=== PATIENT | male | born 1945 | race Caucasian/White ===

== ENCOUNTER → 2018-05-31 14:00 | Outpatient (CLI) | payer MEDICARE, BC, SELFPAY | PROVIDERS: PCP Family Medicine; Visit Provider Urology | DX: N39.41 Urge incontinence (principal) | CPT/HCPCS: 99213 ==

== ENCOUNTER → 2018-07-12 11:14 | Outpatient (BNVA) | payer MEDICARE, BC, SELFPAY | PROVIDERS: Visit Provider Urology | DX: N39.41 Urge incontinence (principal); E11.9 Type 2 diabetes mellitus without complications; Z79.84 Long term (current) use of oral hypoglycemic drugs | CPT/HCPCS: 99213 ==

== ENCOUNTER 2018-09-15 01:57 | Outpatient (CLI) | payer MEDICARE, BC, SELFPAY ==
[2018-09-15 09:15] LABS: Hemoglobin A1C 6.7 % (4.5-6.2)
[2018-09-15 09:50] LABS: ALT 23 U/L (12-78); AST 20 U/L (15-37); Albumin 3.5 g/dL (3.4-5.0); Alkaline Phosphatase 77 U/L (46-116); Anion Gap 6.9 mmol/L (3-11); BUN 14 mg/dL (7-18); Bilirubin, Total 0.5 mg/dL (0.2-1.0); CO2 30.1 mmol/L (21.0-32.0); CREATININE 0.98 mg/dL (0.70-1.30); Calcium 8.8 mg/dL (8.5-10.1); Chloride 103 mmol/L (98-107); Glucose 118 mg/dL (70-100); Potassium 4.3 mmol/L (3.5-5.1); Sodium 140 mmol/L (136-145); Total Protein 6.9 g/dL (6.4-8.2)
[2018-09-15 09:56] LABS: COMMENT (LAB VIEW ONLY) 194.08 mg/dL; Microalb ug/mg Crea 2.7 ug/mg Cr
== END 2018-09-15 02:17 ==
PROVIDERS: PCP Family Medicine; Visit Provider Family Medicine
DX: E11.9 Type 2 diabetes mellitus without complications (principal); I10 Essential (primary) hypertension
CPT/HCPCS: 36415; 80053; 82043; 82570; 83036

== ENCOUNTER → 2018-10-17 08:37 | Outpatient (BNVA) | payer MEDICARE, BC, SELFPAY | PROVIDERS: PCP Family Medicine; Visit Provider Psychiatry & Neurology Neurology | DX: G25.0 Essential tremor (principal); G31.84 Mild cognitive impairment of uncertain or unknown etiology; E11.9 Type 2 diabetes mellitus without complications; Z79.84 Long term (current) use of oral hypoglycemic drugs; I10 Essential (primary) hypertension | CPT/HCPCS: 99214 ==

== ENCOUNTER → 2018-12-14 10:39 | Outpatient (BNVA) | payer MEDICARE, BC, SELFPAY | PROVIDERS: PCP Family Medicine; Visit Provider Psychiatry & Neurology Neurology | DX: G25.0 Essential tremor (principal); G31.84 Mild cognitive impairment of uncertain or unknown etiology; E11.9 Type 2 diabetes mellitus without complications; Z79.84 Long term (current) use of oral hypoglycemic drugs; I10 Essential (primary) hypertension | CPT/HCPCS: 99214 ==

== ENCOUNTER → 2019-01-20 07:54 | Outpatient (BNVA) | payer MEDICARE, BC, SELFPAY | PROVIDERS: PCP Family Medicine; Visit Provider Urology | DX: N40.0 Benign prostatic hyperplasia without lower urinary tract symptoms (principal); N32.81 Overactive bladder; E11.9 Type 2 diabetes mellitus without complications | CPT/HCPCS: 51798; 99213 ==

== ENCOUNTER → 2019-03-07 08:20 | Outpatient (BNVA) | payer MEDICARE, BC, SELFPAY | PROVIDERS: PCP Family Medicine; Visit Provider Urology | DX: N40.1 Benign prostatic hyperplasia with lower urinary tract symptoms (principal); N32.81 Overactive bladder | CPT/HCPCS: 99213 ==

== ENCOUNTER 2019-04-03 09:42 | Outpatient (CLI) | payer MEDICARE, BC, SELFPAY ==
[2019-04-04 10:56] LABS: Lyme Ab w Rflx to Lyme Confirm Negative
== END 2019-04-03 10:02 ==
PROVIDERS: PCP Family Medicine; Visit Provider Family Medicine
DX: W57.XXXA Bitten or stung by nonvenomous insect and other nonvenomous arthropods, initial encounter (principal); T14.8XXA Other injury of unspecified body region, initial encounter
CPT/HCPCS: 36415; 86618

== ENCOUNTER 2019-04-14 02:23 | Outpatient (CLI) | payer MEDICARE, BC, SELFPAY ==
[2019-04-14 09:43] LABS: HCT 45.6 % (40.0-50.0); Mean Corp. HGB Concentration 32.9 g/dL (32.0-36.0); Mean Corpuscular Hemoglobin 30.5 pg (27.0-33.0); Mean Corpuscular Volume 92.9 fL (80-95); Mean Platelet Volume 11.7 fL (8.0-11.0); Platelet Count 185 x1000/uL (130-400); RBC 4.91 m/cumm (4.50-6.00); White Blood Cell Count 8.64 k/cumm (4.4-10.8)
[2019-04-14 09:49] LABS: Iron 124 ug/dL (50-175); Total Iron Binding Capacity 257 ug/dL (250-450); Transferrin Sat 48 % (20-55)
[2019-04-14 09:51] LABS: ALT 22 U/L (12-78); AST 18 U/L (15-37); Albumin 3.6 g/dL (3.4-5.0); Alkaline Phosphatase 89 U/L (46-116); Anion Gap 8.4 mmol/L (3-11); BUN 17 mg/dL (7-18); Bilirubin, Total 0.6 mg/dL (0.2-1.0); CO2 28.6 mmol/L (21.0-32.0); Calcium 9.1 mg/dL (8.5-10.1); Chloride 106 mmol/L (98-107); Glucose 114 mg/dL (70-100); Potassium 4.7 mmol/L (3.5-5.1); Sodium 143 mmol/L (136-145)
[2019-04-14 09:56] LABS: Hemoglobin A1C 6.7 % (4.5-6.2)
== END 2019-04-14 02:43 ==
PROVIDERS: PCP Family Medicine; Visit Provider Family Medicine
DX: E11.9 Type 2 diabetes mellitus without complications (principal); Z86.2 Personal history of diseases of the blood and blood-forming organs and certain disorders involving the immune mechanism
CPT/HCPCS: 36415; 80053; 85027; 83036; 83540; 83550

== ENCOUNTER → 2019-05-01 08:08 | Outpatient (BNVA) | payer MEDICARE, BC, SELFPAY | PROVIDERS: PCP Family Medicine; Visit Provider Psychiatry & Neurology Neurology | DX: G25.0 Essential tremor (principal); G31.84 Mild cognitive impairment of uncertain or unknown etiology; E11.9 Type 2 diabetes mellitus without complications; G47.33 Obstructive sleep apnea (adult) (pediatric) | CPT/HCPCS: 99213 ==

== ENCOUNTER → 2019-08-08 09:23 | Outpatient (BNVA) | payer MEDICARE, BC, SELFPAY | PROVIDERS: PCP Family Medicine; Referring Provider Family Medicine; Visit Provider Urology | DX: N39.41 Urge incontinence (principal) | CPT/HCPCS: 99213 ==

== ENCOUNTER → 2019-08-14 08:22 | Outpatient (BNVA) | payer MEDICARE, BC, SELFPAY | PROVIDERS: PCP Family Medicine; Referring Provider Family Medicine; Visit Provider Psychiatry & Neurology Neurology | DX: G25.0 Essential tremor (principal); G30.9 Alzheimer's disease, unspecified; F02.80 Dementia in other diseases classified elsewhere, unspecified severity, without behavioral disturbance, psychotic disturbance, mood disturbance, and anxiety | CPT/HCPCS: 99213 ==

== ENCOUNTER → 2020-02-12 07:51 | Outpatient (BNVA) | payer MEDICARE, BC, SELFPAY | PROVIDERS: PCP Family Medicine; Referring Provider Family Medicine; Visit Provider Psychiatry & Neurology Neurology | DX: R69 Illness, unspecified (principal) ==

== ENCOUNTER → 2020-02-13 07:54 | Outpatient (BNVA) | payer MEDICARE, BC, SELFPAY | PROVIDERS: PCP Family Medicine; Referring Provider Family Medicine; Visit Provider Psychiatry & Neurology Neurology | DX: R69 Illness, unspecified (principal) ==

== ENCOUNTER → 2020-02-28 08:11 | Outpatient (BNVA) | payer MEDICARE, BC, SELFPAY | PROVIDERS: PCP Family Medicine; Referring Provider Family Medicine; Visit Provider Psychiatry & Neurology Neurology | DX: G30.9 Alzheimer's disease, unspecified (principal); F02.80 Dementia in other diseases classified elsewhere, unspecified severity, without behavioral disturbance, psychotic disturbance, mood disturbance, and anxiety; G25.0 Essential tremor | CPT/HCPCS: 99214 ==

== ENCOUNTER → 2020-04-23 08:43 | Outpatient (BNVA) | payer MEDICARE, BC, SELFPAY | PROVIDERS: PCP Family Medicine; Referring Provider Family Medicine; Visit Provider Urology | DX: N39.41 Urge incontinence (principal); E11.9 Type 2 diabetes mellitus without complications; Z79.84 Long term (current) use of oral hypoglycemic drugs | CPT/HCPCS: 99213 ==

== ENCOUNTER 2020-09-09 21:22 | Outpatient (REF) | payer MEDICARE, BC, SELFPAY ==
[2020-09-09 21:58] LABS: Abs Immature Grans 0.01 10^3/uL (0.0-0.06); Absolute Basophil Count 0.08 10^3/uL (0.0-0.2); Absolute Eosinophil Count 0.08 10^3/uL (0.0-0.7); Absolute Lymphocyte Count 1.94 10^3/uL (1.2-3.4); Absolute Neutrophil Count 5.15 10^3/uL (1.2-6.7); HCT 43.6 % (40.0-50.0); HGB 14.1 g/dL (13.5-17.5); Immature Grans % 0.1; Lymphocytes % 24.7; MCHC 32.3 % (32.0-36.0); MCV 92.8 fL (80-95); MPV 12.3 fL (8.0-11.0); Monocytes % 7.6; Neutrophils % 65.6; Nucleated RBC 0 %; Platelet Count 181 10^3/uL (130-400); RDW 14.6 % (11.8-14.1); RDW-SD 50.3 fL; WBC 7.86 10^3/uL (4.4-10.8)
[2020-09-09 22:20] LABS: Iron 78 ug/dL (65-175); Total Iron Binding Capacity 294 ug/dL (250-450); Transferrin Sat 27 % (20-55)
[2020-09-09 22:21] LABS: Hemoglobin A1C 6.7 % (<5.7)
[2020-09-09 22:44] LABS: ALT 22 U/L (16-63); AST 23 U/L (15-37); Albumin 3.9 g/dL (3.4-5.0); Alkaline Phosphatase 103 U/L (46-116); Anion Gap 8.7 mmol/L (3-11); BUN 20 mg/dL (7-18); Bilirubin, Total 0.6 mg/dL (0.2-1.0); CO2 27.3 mmol/L (21.0-32.0); CREATININE 1.07 mg/dL (0.70-1.30); Calcium 8.8 mg/dL (8.5-10.1); Chloride 105 mmol/L (98-107); Ferritin 105 ng/mL (26-388); Glucose 115 mg/dL (74-106); Potassium 4.7 mmol/L (3.5-5.1); Sodium 141 mmol/L (136-145); Total Protein 7.3 g/dL (6.4-8.2)
== END 2020-09-09 21:42 ==
LOC: NCHCN 21:22
PROVIDERS: PCP Family Medicine; Visit Provider Family Medicine
DX: E11.9 Type 2 diabetes mellitus without complications (principal); D50.9 Iron deficiency anemia, unspecified; K76.0 Fatty (change of) liver, not elsewhere classified
CPT/HCPCS: 80053; 82728; 83036; 83540; 83550; 85025

== ENCOUNTER → 2021-04-01 14:46 | Outpatient (BNVA) | payer MEDICARE, BC, SELFPAY | PROVIDERS: PCP Family Medicine; Referring Provider Family Medicine; Visit Provider Psychiatry & Neurology Neurology | DX: G25.0 Essential tremor (principal); G30.9 Alzheimer's disease, unspecified; F02.80 Dementia in other diseases classified elsewhere, unspecified severity, without behavioral disturbance, psychotic disturbance, mood disturbance, and anxiety; E11.9 Type 2 diabetes mellitus without complications; I10 Essential (primary) hypertension | CPT/HCPCS: 99213 ==

== ENCOUNTER 2021-06-30 14:56 | Outpatient (REF) | payer MEDICARE, BC, SELFPAY ==
[2021-06-30 19:13] LABS: ALT 28 U/L (16-63); AST 27 U/L (15-37); Albumin 3.4 g/dL (3.4-5.0); Alkaline Phosphatase 108 U/L (46-116); BUN 18 mg/dL (7-18); Bilirubin, Total 0.5 mg/dL (0.2-1.0); Calcium 8.5 mg/dL (8.5-10.1); Chloride 108 mmol/L (98-107); Glucose 118 mg/dL (74-106); Potassium 4.3 mmol/L (3.5-5.1); Sodium 141 mmol/L (136-145); Total Protein 6.7 g/dL (6.4-8.2)
== END 2021-06-30 14:57 | disposition home or self-care (01) ==
LOC: NCHCN 14:56
PROVIDERS: PCP Family Medicine; Visit Provider Family Medicine
DX: E11.9 Type 2 diabetes mellitus without complications (principal)
CPT/HCPCS: 80053; 83036

== ENCOUNTER → 2021-10-06 11:00 | Outpatient (BNVA) | payer MEDICARE, BC, SELFPAY | PROVIDERS: PCP Family Medicine; Referring Provider Family Medicine; Visit Provider Psychiatry & Neurology Neurology | DX: G25.0 Essential tremor (principal); G30.9 Alzheimer's disease, unspecified; F02.80 Dementia in other diseases classified elsewhere, unspecified severity, without behavioral disturbance, psychotic disturbance, mood disturbance, and anxiety; E11.9 Type 2 diabetes mellitus without complications; I10 Essential (primary) hypertension | CPT/HCPCS: 99214 ==

== ENCOUNTER 2021-12-08 19:54 | Emergency (ER) | payer MEDICARE, BC, SELFPAY ==
[2021-12-08] VITALS (25 sets, daily range): BP systolic 122–154; BP diastolic 68–122; PULSE 92–124; RESP 14–29; TEMP 37.5; O2SAT 90–94
--- NOTE | 2021-12-08 20:15 | DI.RAD_ITS ---
Exam(s) XR PORTABLE CHEST AP EXAM: XR PORTABLE CHEST AP CLINICAL HISTORY: Confusion, Mild fever. TECHNIQUE: 2D digital imaging was performed. COMPARISON: CR CHEST 2 VIEWS PA,LAT from 03/17/2014 FINDINGS: Heart size is upper normal. The mediastinum is not widened. Retrocardiac hiatal hernia is noted-moderate size. There are mild increased markings in the right lung base, possibly mild infiltrate. Left lung is yoel ar. No pleural effusions. IMPRESSION: Possible subtle right lung base infiltrate. No obvious pleural effusions. Recommend nonportable PA and lateral views when clinically possible. DATA REPOSITORY: RADIATION DOSE DELIVERED: All CT scans at this facility use at least one of these dose optimization techniques: automated exposure control; mA and/or kV adjustment per patient size (includes targeted e xams where dose is matched to clinical indication); or iterative reconstruction.
--- NOTE | 2021-12-08 20:15 | RT.EKG_ITS ---
APPROVED REPORT Exam: Resting ECG Reason for Exam: Confusion Patient Location: E HR:105 bpm ECG Measurements Heart Rate 105 AXIS MO 154 P 75 QRSd 79 QRS 51 QT 316 T 41 QTc 418 Conclusion Sinus tachycardia...rate> 99. Sinus. Normal axis. No STEMI. I have reviewed and interpreted ECG and agree with software generated interpretation.
--- NOTE | 2021-12-08 20:15 | DI.CT_ITS ---
Exam(s) CT HEAD WO EXAM: CT HEAD WO CLINICAL HISTORY: Confusion, Fall 2 weeks ago. TECHNIQUE: Imaging Protocol: Axial computed tomography images with coronal and sagittal reformatted images were created and reviewed COMPARISON: CT HEAD WITH/WITHOUT CONTRAST from 12/24/2017 FINDINGS: There are no skull fractures nor fluid in the visualized paranasal sinuses. There is some opacifica tion of right-sided mastoid air cells. However, mastoid air cells appears significantly improved whe n compared to 2018. There is no evidence of intracranial hemorrhage, mass effect, or shift of midline structures. There are no extra-axial fluid collections. The ventricles are not enlarged or shifted and there is no blo od within the ventricular system nor within the basal cisterns. Again noted is periventricular bilateral hypodensity consistent with chronic small vessel disease. T here is no obvious acute focal territorial infarct. IMPRESSION: No acute intracranial findings on this noninfused CT scan of the brain. Chronic small-vessel white matter ischemic changes. Fluid noted in the right mastoid air cells, although less than was present on the 2018 study. RADIATION DOSE DELIVERED: 801.68mGy.cm Total DLP DATA REPOSITORY: All CT scans at this facility are submitted to the National Radiology Data Registry (NRDR) Dose Index Registry (DIR) with the [employer] (ACR). RADIATION OPTIMIZATION: All CT scans at this facility use at least one of these dose optimization te chniques: automated exposure control; mA and/or kV adjustment per patient size (includes targeted exa ms where dose is matched to clinical indication); or iterative reconstruction.
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
[2021-12-08 20:37] LABS: Abs Immature Grans 0.01 10^3/uL (0.0-0.06); Absolute Basophil Count 0.06 10^3/uL (0.0-0.2); Absolute Eosinophil Count 0.02 10^3/uL (0.0-0.7); Absolute Lymphocyte Count 1.31 10^3/uL (1.2-3.4); Absolute Monocyte Count 0.71 10^3/uL (0.1-0.8); Absolute Neutrophil Count 7.84 10^3/uL (1.2-6.7); Basophils % 0.6; Eosinophils % 0.2; HCT 42.1 % (40.0-50.0); HGB 13.5 g/dL (13.5-17.5); Immature Grans % 0.1; Lymphocytes % 13.2; MCH 29.7 pg (27.0-33.0); MCHC 32.1 % (32.0-36.0); MCV 92.5 fL (80-95); MPV 11.3 fL (8.0-11.0); Monocytes % 7.1; Neutrophils % 78.8; Nucleated RBC 0 %; Platelet Count 174 10^3/uL (130-400); RBC 4.55 10^6/uL (4.36-5.78); RDW 14.9 % (11.8-14.1); RDW-SD 51.7 fL; WBC 9.95 10^3/uL (4.4-10.8)
[2021-12-08 20:59] LABS: ALT 13 U/L (16-63); AST 17 U/L (15-37); Albumin 3.3 g/dL (3.4-5.0); Alkaline Phosphatase 112 U/L (46-116); Anion Gap 9.7 mmol/L (3-11); BUN 10 mg/dL (7-18); Bilirubin, Total 0.8 mg/dL (0.2-1.0); CO2 26.3 mmol/L (21.0-32.0); CREATININE 1.1 mg/dL (0.70-1.30); Calcium 8.4 mg/dL (8.5-10.1); Chloride 106 mmol/L (98-107); Glucose 110 mg/dL (74-106); Magnesium 1.8 mg/dL (1.8-2.4); Potassium 3.9 mmol/L (3.5-5.1); Sodium 142 mmol/L (136-145); Total Protein 7.1 g/dL (6.4-8.2); Troponin I < 50 ng/L (<or=60)
[2021-12-08 21:16] LABS: Bilirubin Small (Negative); Blood Negative (Negative); Clarity Clear (Clear); Glucose Negative (Negative); Ketones 80 mg/dL (Negative); Leukocyte Esterase Negative (Negative); Nitrite Negative (Negative); Specific Gravity 1.025 (1.005-1.025)
[2021-12-08] MEDS: Normal Saline 500 ML IV (21:20)
--- NOTE | 2021-12-08 21:37 | DI.VRAD_ITS ---
PROCEDURE INFORMATION: Exam: XR Chest Exam date and time: 12/08/2021 8:16 PM Age: 76 years old Clinical indication: Other: Confusion, mild fever TECHNIQUE: Imaging protocol: XR of the chest. Views: 1 view. Total images: 1 COMPARISON: No relevant prior studies available. FINDINGS: Lungs: Low lung volumes. Pulmonary vasculature grossly normal. Mild bronchial wall thickening may indicate bronchitis. No gross infiltrates. Pleural spaces: No pleural effusion. No pneumothorax. Heart/Mediastinum: Heart size normal. Moderate-sized hiatal hernia. No tracheal/mediastinal shift. Bones/joints: No acute osseous abnormalities are identified. IMPRESSION: 1. No definite acute process. 2. Question bronchial wall thickening, possible bronchitis. No gross infiltrates. 3. Moderate-sized hiatal hernia. 4. Low lung volumes. Dictated and Authenticated by: Kj Chin MD. Ordering:MYRON Swann MD
--- NOTE | 2021-12-08 21:44 | DI.VRAD_ITS ---
PROCEDURE INFORMATION: Exam: CT Head Without Contrast Exam date and time: 12/08/2021 8:16 PM Age: 76 years old Clinical indication: Other: Confusion, fall two weeks ago TECHNIQUE: Imaging protocol: Computed tomography of the head without contrast. Total images: 1068 Radiation optimization: All CT scans at this facility use at least one of these dose optimization techniques: automated exposure control; mA and/or kV adjustment per patient size (includes targeted exams where dose is matched to clinical indication); or iterative reconstruction. COMPARISON: CT HEAD WITH/WITHOUT CONTRAST 12/24/2017 1:05 PM FINDINGS: Brain: Moderate generalized atrophy. Moderate bilateral white matter hypodensities which are nonspecific but most commonly associated with chronic microvascular ischemia in this age group. No extra-axial fluid collections. No evidence of acute intracranial hemorrhage. No CT evidence of large territory acute or subacute intracranial ischemia/infarct. Chronic encephalomalacia in the inferior left temporal lobe suggesting small chronic cortical/subcortical infarct, although new since 2018. Small chronic lacunar infarct in the right cerebellar hemisphere unchanged. No intracranial mass lesions. No midline shift or herniation. Cerebral ventricles: Mild compensatory ventriculomegaly secondary to central atrophy. Paranasal sinuses: Mild mucosal thickening in the left fronto ethmoid distribution suggesting mild sinus inflammatory disease. No fluid levels. Mastoid air cells: Opacified right mastoid air cells suggesting mastoid inflammatory disease. No gross coalescence. Left mastoid air cells are clear. Orbital cavity: Visualized orbital contents demonstrate no acute abnormality. Vasculature: Moderate calcific atherosclerosis. No asymmetric vascular hyperdensities suggestive of thrombosis are identified. Bones/joints: The calvarium and visualized facial bones are intact. Soft tissues: Mild soft tissue swelling in the apical scalp with no underlying fracture or foreign body. Other findings: The IACs are grossly normal. The sella is grossly normal. IMPRESSION: 1. No acute intracranial process. No intracranial hemorrhage or mass effect. 2. Atrophy and chronic microvascular changes consistent with age. Small chronic infarcts. 3. Moderate calcific atherosclerosis. 4. Evidence of left frontoethmoid sinusitis and right mastoiditis. Dictated and Authenticated by: Kj Chin MD. Ordering:MYRON Swann MD
[2021-12-08] MEDS: Amoxicillin 875/Clav. 125 TAB PO (22:21)
[2021-12-08] MEDS: Amox. 875/Clav. 125, 2 TABS/BTL 1 TAB PO (22:21)
[2021-12-08] MEDS: Benzocaine 20% Gel 30 GM JAR MM (22:21)
== END 2021-12-08 22:28 | disposition home or self-care (01) ==
PROVIDERS: Emergency Provider Registered Nurse Emergency; PCP Family Medicine
DX: E86.0 Dehydration (principal); J01.90 Acute sinusitis, unspecified; R41.0 Disorientation, unspecified; K02.9 Dental caries, unspecified; R82.998 Other abnormal findings in urine; E11.9 Type 2 diabetes mellitus without complications
CPT/HCPCS: 36415; 36416; 51701; 80053; 82962; 87040; 93005; 96360; 99285; 70450; 71045; 81003; 83735; 84484; 85025; 93010; 99284

== ENCOUNTER → 2022-04-14 09:07 | Outpatient (BNVA) | payer MEDICARE, BC, SELFPAY | PROVIDERS: PCP Nurse Practitioner Family; Referring Provider Nurse Practitioner Family; Visit Provider Psychiatry & Neurology Neurology | DX: G47.33 Obstructive sleep apnea (adult) (pediatric) (principal); G25.0 Essential tremor; G30.9 Alzheimer's disease, unspecified; F02.80 Dementia in other diseases classified elsewhere, unspecified severity, without behavioral disturbance, psychotic disturbance, mood disturbance, and anxiety | CPT/HCPCS: 99214 ==

== ENCOUNTER → 2022-06-17 09:33 | Outpatient (BNVA) | payer MEDICARE, BC, SELFPAY | PROVIDERS: PCP Nurse Practitioner Family; Referring Provider Nurse Practitioner Family; Visit Provider Psychiatry & Neurology Neurology | DX: I10 Essential (primary) hypertension (principal); E11.9 Type 2 diabetes mellitus without complications; G25.0 Essential tremor; G30.9 Alzheimer's disease, unspecified; F02.80 Dementia in other diseases classified elsewhere, unspecified severity, without behavioral disturbance, psychotic disturbance, mood disturbance, and anxiety | CPT/HCPCS: 99213 ==

== ENCOUNTER → 2022-11-03 13:10 | Outpatient (BNVA) | payer MEDICARE, BC, SELFPAY | PROVIDERS: PCP Nurse Practitioner Family; Referring Provider Nurse Practitioner Family; Visit Provider Psychiatry & Neurology Neurology | DX: G25.0 Essential tremor (principal); G30.9 Alzheimer's disease, unspecified; F02.80 Dementia in other diseases classified elsewhere, unspecified severity, without behavioral disturbance, psychotic disturbance, mood disturbance, and anxiety; F39 Unspecified mood [affective] disorder; G47.33 Obstructive sleep apnea (adult) (pediatric) | CPT/HCPCS: 99214 ==

== ENCOUNTER 2023-04-14 10:21 | Outpatient (CLI) | payer MEDICARE, BC, SELFPAY ==
[2023-04-14 12:13] LABS: Abs Immature Grans 0.01 10^3/uL (0.0-0.06); Absolute Eosinophil Count 0.13 10^3/uL (0.0-0.7); Absolute Lymphocyte Count 2.43 10^3/uL (1.2-3.4); Absolute Monocyte Count 0.82 10^3/uL (0.1-0.8); Absolute Neutrophil Count 5.12 10^3/uL (1.2-6.7); Basophils % 1.2; Eosinophils % 1.5; HCT 43.3 % (40.0-50.0); HGB 14.1 g/dL (13.5-17.5); Immature Grans % 0.1; Lymphocytes % 28.2; MCH 30.3 pg (27.0-33.0); MCHC 32.6 % (32.0-36.0); MCV 93 fL (80-95); MPV 11.8 fL (8.0-11.0); Monocytes % 9.5; Neutrophils % 59.5; Platelet Count 197 10^3/uL (130-400); RBC 4.65 10^6/uL (4.36-5.78); RDW-SD 48.1 fL; WBC 8.61 10^3/uL (4.4-10.8)
[2023-04-14 12:53] LABS: COMMENT (LAB VIEW ONLY) 134.88 mg/dL; Iron 145 ug/dL (65-175); Microalb ug/mg Crea 8.3 ug/mg Cr; Total Iron Binding Capacity 305 ug/dL (250-450)
[2023-04-14 13:06] LABS: Estimated GFR 76.56 (mL/min/1.73m2); Ferritin 43 ng/mL (26-388)
[2023-04-15 11:05] LABS: Transferrin 234 mg/dL (201-352)
== END 2023-04-14 10:22 | disposition home or self-care (01) ==
LOC: LOS 10:22
PROVIDERS: PCP Nurse Practitioner Family; Referring Provider Nurse Practitioner Family; Visit Provider Nurse Practitioner Family
DX: D50.9 Iron deficiency anemia, unspecified (principal); E11.9 Type 2 diabetes mellitus without complications
CPT/HCPCS: 36415; 82043; 82565; 82570; 82728; 83540; 83550; 84466; 85025

== ENCOUNTER → 2023-04-27 08:03 | Outpatient (BNVA) | payer MEDICARE, BC, SELFPAY | PROVIDERS: PCP Nurse Practitioner Family; Visit Provider Psychiatry & Neurology Neurology | DX: G25.0 Essential tremor (principal); G30.9 Alzheimer's disease, unspecified; F02.80 Dementia in other diseases classified elsewhere, unspecified severity, without behavioral disturbance, psychotic disturbance, mood disturbance, and anxiety; G47.33 Obstructive sleep apnea (adult) (pediatric); F39 Unspecified mood [affective] disorder; I10 Essential (primary) hypertension; E11.9 Type 2 diabetes mellitus without complications; Z79.84 Long term (current) use of oral hypoglycemic drugs | CPT/HCPCS: 99214 ==

== ENCOUNTER 2023-12-10 09:32 | Emergency (ER) | payer MEDICARE, BC, SELFPAY ==
[2023-12-10 09:58] VITALS: BP 141/69; PULSE 72; RESP 18; TEMP 37.1; O2SAT 91
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
== END 2023-12-10 11:59 | disposition home or self-care (01) ==
PROVIDERS: Emergency Provider Physician Assistant; PCP Nurse Practitioner Family
DX: S01.112A Laceration without foreign body of left eyelid and periocular area, initial encounter (principal); S00.83XA Contusion of other part of head, initial encounter; G30.9 Alzheimer's disease, unspecified; F02.80 Dementia in other diseases classified elsewhere, unspecified severity, without behavioral disturbance, psychotic disturbance, mood disturbance, and anxiety; F01.50 Vascular dementia, unspecified severity, without behavioral disturbance, psychotic disturbance, mood disturbance, and anxiety; E78.5 Hyperlipidemia, unspecified; E11.9 Type 2 diabetes mellitus without complications; F17.210 Nicotine dependence, cigarettes, uncomplicated; Z79.82 Long term (current) use of aspirin; Z79.84 Long term (current) use of oral hypoglycemic drugs; X58.XXXA Exposure to other specified factors, initial encounter
CPT/HCPCS: 12011; 99283; 81003

== ENCOUNTER 2023-12-10 15:00 | Outpatient (REF) | payer MEDICARE, BC, SELFPAY ==
[2023-12-10 15:21] LABS: Bilirubin Negative (Negative); Blood Negative (Negative); Clarity Clear (Clear); Glucose Negative (Negative); Ketones 40 mg/dL (Negative); Leukocyte Esterase Negative (Negative); Nitrite Negative (Negative); Specific Gravity 1.025 (1.005-1.025); Urobilinogen 0.2 mg/dL (Up to 0.2)
== END 2023-12-10 15:01 | disposition home or self-care (01) ==
LOC: LBN 15:00
PROVIDERS: PCP Nurse Practitioner Family; Visit Provider Physician Assistant
DX: N39.0 Urinary tract infection, site not specified (principal)
CPT/HCPCS: 81003

== ENCOUNTER 2023-12-18 21:07 | Inpatient (IN) | payer OTHER, SELFPAY ==
[2023-12-18 21:00] VITALS: BP 133/76; PULSE 102; RESP 20; TEMP 37; O2SAT 93
--- NOTE | 2023-12-18 21:33 | W.PM.HP.N ---
Date of service: 12/18/23 Time of Service: 20:33 Assessment and Plan Assessment and plan (1) Hospice care: Status: Acute Assessment and plan: Roger is being admitted on hospice respite status. It is unsafe for him to live at home. His family cannot provide 26/04 care there for him. He tried living at [facility], since Wednesday 12/13. Since there, he has struggled. He has wandered into other patients' rooms. He slept at least part of one night in the [facility] [employer] parlor. He is disoriented. He ate a non-food object. He needs more help than [facility] can provide.. Of course, he has not been there long, but I think it is clear that his dementia has progressed beyond level 3 care. I discussed next steps with the family. He needs to be house at a SNF most likely. He is beyond the care needs usually provided by a community prison. His family is willing to look at the [facility], [facility], and [facility]. They prefer [facility] or [facility], but understand that Roger will have to be discharged from his hospice respite stay by . If he decompensates, however, he may have to revoke hospice and if possible be admitted to the hospitalist service for acute level of care. (2) Unintentional weight loss: Status: Acute Assessment and plan: Has lost about 30 lbs since 2023. Not eating or drinking much at all. (3) Unable to self-administer medication: Status: Acute Assessment and plan: Needs help with all ADLs. Incontinent of urine always and stool most of the time, I believe. Cannot dress himself. Seemed to struggle with cueing alone. (4) Mixed Alzheimer's and vascular dementia: Status: Acute Assessment and plan: End stage. ON hospice for same. Usually a very sweet and loveable man. Struggling with loss of his home and now in second new environment in one week. Will see if he can settle out. Family helping by spending tonight with Roger. (George Villalba is sleeping on cot in Roger's room). Needs to find safe placement at SNF level of care. (5) Unsteady gait: Status: Acute Assessment and plan: Fell last weekend. Needs assistance with walking to prevent falls. Had a cane at but wasn't using consistently. Not sure how he would do with a walker. Family reported that he forgets to use it, how to use it. (6) Contusion of face: Status: Acute Assessment and plan: Healing from fall last weekend. (7) Deficit in activities of daily living (ADL): Status: Acute (8) DNI (do not intubate): Status: Acute (9) DNR (do not resuscitate): Status: Acute (10) Diabetes: Status: Chronic Assessment and plan: No longer taking metformin as he has lost 30 lbs in 3 months, per report. (11) Requires daily assistance for activities of daily living (ADL) and comfort needs: Status: Acute (12) Lives in assisted living facility: Status: Acute Assessment and plan: Not going to return to Assisted Living after this admission. HIs care needs are beyond what AL can provide. History of Present Illness History of Present Illness Chief Complaint: advanced mixed dementia Narrative: Roger is a 78 yo man admitted to hospice on 11/11/23 with a diagnosis of advanced mixed dementia, primarily alzheimer's disease and vascular dementia. He also has unintentional weight loss. His clothes are loose on him; he isn't interested in eating or drinking much at all. He had been living alone with help from family and hired aides until Wednesday, 12/13 when he moved into the [facility] living. He had fallen twice at home over the previous weekend and went to the ER to have a resulting laceration repaired. It became clear that he was no longer safe at home alone even for a few hours. I saw him the day he moved into the [facility]. He did not want to stay there, even though he wasn't sure where he was when he was at home. He didn't want to take off his coat and hat. He asked his daughter to take him home. We were able to get him calmed down enough to have him sit at the dining table for dinner. I saw him again the day before this admission. He had not been sleeping well, staff reported. He tried to eat a paper napkin while I was visiting him. He slept the previous night in the [employer] parlor. He appeared tired. The rate of his dementia progression has sped up over the last 2-3 weeks, per his family's report. He doesn't know his children (Deejay, Elvira and Jake) by name any more. His language makes no sense at all. He has episodes when he is gets agitated, and other episodes when he is calm. I had started him on risperidone 0.25 tid on 12/13 (first dose that evening). When I saw him on 12/16, I reduced his dose to 0.25 bid as I was worried his gait was unsteady and he was at risk of falling. His children report that now he is always trying to get something done. He talks about working on his machinery. 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 Today, he was upset in the morning and the [facility] asked for his son to come in and settle him down. THey did give Roger one dose of lorazepam prior to calling his son. Deejay was there for a few hours, and ate dinner with him. Deejay reported that his father seemed very calm. The staff person agronomy advisor and Deejay put Roger to bed around 6:30 pm. Deejay went home for the evening, thinking his father would finally sleep in his own bed soundly through the night. However, about an hour later, Roger woke up and was disoriented and wanted to leave again. As there is only 1 staffperson on at night, she could not have Roger requiring so much care. She asked that hospice admit Roger to the hospital for respite care. I came to meet Roger and his family at the hospital. Review of Systems All systems reviewed & are unremarkable except as noted in HPI and below Constitutional Constitutional: Reports weakness ENT Ears, Nose, Mouth, and Throat: Reports abnormal hearing and Reports disequilibrium Musculoskeletal Musculoskeletal: Reports abnormal gait Neurologic Neurologic: Reports abnormal hearing, Reports abnormal speech, Reports abnormal gait, Reports behavioral changes, Reports confusion, Reports memory loss, Reports disequilibrium and Reports weakness Psychiatric Psychiatric: Reports abnormal sleep pattern, Reports behavioral changes, Reports change in appetite, Reports confusion, Reports difficulty concentrating and Reports memory loss PFSH All Active Problems Lives in assisted living facility (Acute) needs to transfer to SNF; required more care than level 3 than provide Requires daily assistance for activities of daily living (ADL) and comfort needs (Acute) Unsteady gait (Acute) Hospice care (Acute) Contusion of face (Acute) Facial laceration (Acute) Unintentional weight loss (Acute) Encounter for hospice care discussion (Acute) Sciatica of left side (Acute) Advanced care planning/counseling discussion (Acute) Deficit in activities of daily living (ADL) (Acute) Unable to self-administer medication (Acute) Driving safety issue (Acute) Mixed Alzheimer's and vascular dementia (Acute) Incontinence of urine (Chronic) multifactorial DNI (do not intubate) (Acute) DNR (do not resuscitate) (Acute) POLST (Physician Orders for Life-Sustaining Treatment) (Acute) Palliative care patient (Acute) Urgency incontinence (Chronic 03/09/17) Tubular adenoma of colon (Chronic) colono.2012: normal Sleep apnea (Chronic) intolerant of CPAP contributing to cognitive impairment Iron deficiency anemia (Chronic 04/10/16) resolved 2018 advised trial off supplement 2019 GERD (gastroesophageal reflux disease) (Chronic) Fatty liver (Chronic) Essential tremor (Chronic 02/01/18) ED (erectile dysfunction) (Chronic) Diabetes (Chronic) no nephropathy Chronic back pain (Chronic) 1- [facility]: 07-20-2011: L2-S1 decompression with unilateral fusion Left L5-S1 Dr.James Pacheco / followed by #epidural/nerve root injections 2- Mihir Hoffman: pain clinic/ #injections 3-[facility] : ; medical tx recommended 4- : requested dx selective root block L3-L4 for poss.future selective foraminectomy 5- 2016: inj. not done: pt asymptomatic BPH (benign prostatic hyperplasia) (Chronic) 2016/ 2013; triple rx Hyperlipidemia (Chronic) Medical History Smoker 1/2-1 ppd restarted after 's 2015 quit 11/27 Sepsis Viral encephalitis Mild cognitive impairment has advanced to dementia Osteoarthritis Hyperlipidemia Diabetes mellitus Benign prostatic hyperplasia Surgical History back surgery Lumbar spine 07/2012;[facility] Colonoscopy - MAC (04/08/18) Colonoscopy - IV Sedation Family History Mother , in her early 60s Personal history of malignant neoplasm Father , about age 80 in hospital after brief illness Acute medical illness Brother Heart disease Stroke Grandfather Heart disease Grandfather Diabetes Grandmother Heart disease Brother Personal history of malignant neoplasm Brother , KIDNEY FAILURE at age 71. Diabetes Heart disease Stroke Daughter No problems noted. Son No problems noted. Son No problems noted. 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 Pets and animals: No (his dog in 2018; son's dogs in 2019 and 2020; Roger misses them) What is your relationship status?: How often do you talk on the phone with friends or family?: never How often do you get together with friends or relatives?: three or more times per week Do you belong to any clubs or organized social groups?: no Panel score (0-1 are the most socially isolated patients): 1 What type of physical activity do you participate in: none Special micheal needs: No Agree to transfusion: No Seatbelt use: sometimes Working smoke detector in home: Yes Fire extinguisher in home: Yes Firearms in home: No Do you feel safe at home: Yes Do you feel safe in your relationship?: Yes Additional Social history: Keshias dementia has been progressing rapidly since 2022. Unsafe to live at home alone. Proved that he needs more help than a level 3 can provide. Will need SNF placement JOVANY. Meds Allergies and Home Medications Allergies Allergy/AdvReac Type Severity Reaction Status Date / Time morphine AdvReac Intermediate see note Verified 12/10/23 10:23 Home Medications Medication Instructions Recorded Confirmed Type mirtazapine 7.5 mg tablet 7.5 mg PO QHS #30 tabs 06/30/23 12/18/23 Rx finasteride 5 mg tablet 5 mg PO DAILY #90 tab-caps 07/12/23 12/18/23 Rx lorazepam 1 mg tablet 1 mg PO Q4H PRN anxiety #10 tabs 11/02/23 12/18/23 Rx morphine concentrate 100 mg/5 mL See Rx Instructions PO Q1H PRN 11/02/23 12/18/23 Rx (20 mg/mL) oral solution pain or dyspnea #30 mL risperidone 0.25 mg tablet 0.25 mg PO TID #21 tabs 12/14/23 12/18/23 Rx acetaminophen 650 mg rectal 650 mg OK Q6H PRN fever or pain 12/18/23 12/18/23 History suppository bisacodyl 10 mg rectal suppository 10 mg OK DAILY PRN constipation 12/18/23 12/18/23 History haloperidol lactate 2 mg/mL oral 1 mg PO Q6H PRN agitation 12/18/23 12/18/23 History concentrate hyoscyamine sulfate 0.125 mg 0.125 mg PO Q4H PRN secretions 12/18/23 12/18/23 History sublingual tablet ibuprofen 200 mg tablet (IBU-200) 600 mg PO DAILY PRN pain 12/18/23 12/18/23 History prochlorperazine maleate 10 mg 10 mg PO Q6H PRN nausea and 12/18/23 12/18/23 History tablet vomiting Exam Narrative Exam Narrative: Roger was in the hospital bed, having been placed there by flight technician who transported him to hospital. He was shirtless. He was wearing hospital pants. He was pleasant but confused. He cooperated with my exam. The left upper side of his face is still quite bruised from his fall last weekend (7 days prior to this admission). He is hard of hearing. He lost his hearing aids a few months ago. His lungs were clear though distant. He had no increased work of breathing. Neck was without JVD or LAD. Heart was regular, no murmur noted. Abd normal weight, soft, hypoactive but present BS. No masses Neuro called his son Jake Parrish--he had a brother named Francois who of dementia . Oriented only to self. Psych was calm at first, then wanted to get OOB and nurse helped him into a recliner. Then he wanted to go home. Son Deejay offered to stay the night to help Roger adjust to another new room/place. no cody in place Time Spent Time spent with Patient: 40-54 minutes Time was spent: obtaining and/or reviewing separately otained hiistory, ordering medications,tests, procedures, referring, communicating with other health patient care technician, counseling the patient and care coordination
[2023-12-18] MEDS: LORazepam 1 MG TAB PO (21:54)
[2023-12-18] MEDS: risperiDONE 0.25 MG TAB PO (21:55)
[2023-12-18] MEDS: Mirtazapine 15 MG TAB 7.5 MG PO (21:55)
[2023-12-18] MEDS: MORPHine Oral Concentrate 20 MG/ML PO (23:22)
[2023-12-19 08:21] VITALS: BP 124/73; PULSE 94; RESP 17; TEMP 36.7; O2SAT 91
[2023-12-19] MEDS: risperiDONE 0.25 MG TAB PO ×2 (08:35→13:45)
[2023-12-19] MEDS: Finasteride 5 MG TAB PO (08:35)
--- NOTE | 2023-12-19 09:35 | CMPROGNOTE_ITS ---
Date of service: 12/19/23 Care Management Progress Note Progress Note Text Progress Note Text: S/O: Roger was sitting in a chair with an RN sitter with daughter Elvira bedside. CM met with daughter Elvira in the hallway who reports her brother Deejay was in earlier when explained options. CM let Elvira know there will be a ironworker wire fence erector Yun who will be here in the morning. CM explained Roger is admitted under Hospice respite with discharge plans for if not before and CM along with Hospice will assist with placement and ironworker wire fence erector will answer questions Elvira has of any concerns. CM following. A: Roger is a 78 year old male admitted to [facility] for Hospice respite 12/18/23. P: Roger will remain at [facility] for Hospice respite, for up to 5 days. CM and ironworker wire fence erector will work together to support Roger and his family. CM will send referrals to SNF for placement, private pay for terminal operations supervisor care on hospice. If he does nt have placement by the end of his 5 day respite, he will be d/c'd home with family. CM will continue to follow. SDOH(Care Management) Screening Will the Patient Participate in the Screening?: Unable to obtain
--- NOTE | 2023-12-19 12:55 | W.PM.PROGNOT ---
Date of Service Date of service: 12/19/23 Time of Service: 09:00 Assessment and Plan Assessment and plan (1) Requires daily assistance for activities of daily living (ADL) and comfort needs: Status: Acute Assessment and plan: Roger can no longer live alone. His needs are too high to live at an Assisted Living. He needs SNF level of care. Unfortunately, he does not meet acute level of care this admission; he is not rehabable (cannot follow instructions for PT or OT) due to his dementia. He needs long-term care with permanent placement. Jake and I spoke both before and after I spent quite a while with Payloader Operator Eliezer Torres. We were able to reach hospice TOUR NARRATOR Yun June, too. Family is interested in pursuing placement at [facility], the Memory Care Unit at [facility] in [place], or if necessary temporarily at [facility] or [facility]. Yun will come in to meet with the family 3 am. (2) Hospice care: Status: Acute Assessment and plan: Remains on Respite Hospice Admission. Needs to be discharged on , December 22. I will be the provider to discharge him. Family stated they understood he cannot return to [facility] as his needs are too great for a level 3. He cannot be at home alone. He doesn't qualify for inpatient level of care in the hospital. (3) Unsteady gait: Status: Acute Assessment and plan: At risk for falling. Can see if [facility] PT thinks he is safe to use a walker. Was using cane upon admission to [facility]. Not sure if he is cognitively able to use walker. (4) Mixed Alzheimer's and vascular dementia: Status: Acute Assessment and plan: Advanced. May also have a component of FTD. His brother Francois of similar dementia, and he had FTD in addition to AD and vascular, per family. He at the [facility]. (5) Incontinence of urine: Status: Chronic Assessment and plan: Chronic. Not new. Unaware when he is soiled. (6) DNI (do not intubate): Status: Acute (7) DNR (do not resuscitate): Status: Acute Assessment and plan: Has COLST form done several years ago indicating his desires for DNR/DNI status. Subjective Subjective Patient reports: feels better; denies nausea, shortness of breath or fever Interval history since last seen: Roger's son Deejay spent the night with him overnight. Nurses reported that Roger settled down after his other son, Jake, Deejay's , and I all left last night. He needed one dose of haldol about 1:30 am but otherwise was calm and cooperative. He was not wandering. He was not agitated, except for picking at his bedclothes, trying to pull them off, etc. This morning, he appeared tired. Jake said that Deejay told him Roger didn't sleep soundly until after the haldol dose at 1:30 am but that after that, he slept through until about 7 am. He ate breakfast. He has not been agitated this am. He was cooperative with me. He answered some of my questions appropriately, but not all of them. He is oriented only to himself. He remained in his recliner throughout my visit. His primary nurse, Bjorn, reported that Roger had been cooperative with him, too. Roger looks tired and sad today, whereas he looked confused and frightened when I saw him at [facility] 2 days ago. Exam Narrative Exam Narrative: Roger was in his recliner. He looked tired, and said he was tired, too. He was swearing hospital clothing. He was pleasant but confused. He cooperated with my exam. The left upper side of his face is still quite bruised from his fall 8 days ago He is hard of hearing. He lost his hearing aids a few months ago. His lungs were clear though distant. He had no increased work of breathing. Neck was without JVD or LAD. Heart was regular, no murmur noted. Abd normal weight, soft, hypoactive but present BS. No masses Neuro Oriented only to self. Some answers are on target, most are not. Does not have capacity. Psych was calm, looked sad and a bit hopeless. fell asleep during my visit. no cody in place skin other than previous facial laceration, no bruising or abrasions noted Objective Last Vital Signs Temp 98.1 F 12/19/23 08:21 Pulse 94 H 12/19/23 08:21 Resp 12/19/23 08:21 BP 124/73 12/19/23 08:21 Pulse Ox 91 L 12/19/23 08:21 Time Spent with Patient Time Spent with Patient: <25 minutes Time was spent: referring, communicating with other health workforce investment act career manager, counseling the patient (family, not patient) and care coordination
[2023-12-19] MEDS: OLANZapine 10 MG VIAL IM (13:45)
[2023-12-19] MEDS: Water,Injection,Sterile 10 ML VIAL (13:45)
[2023-12-19 20:05] VITALS: PULSE 108; RESP 20
[2023-12-20] MEDS: OLANZapine 10 MG VIAL IM ×2 (03:20→17:58)
--- NOTE | 2023-12-20 04:03 | NUR.NOTE ---
Pt triggered bed alarm at 0230 attempting to get out of by by climbing over raised rails. His verbal expressions reflected pt's confusion with current surroundings. This nurse and CC attempted unsuccessfully to redirect and reorient patient. CC retrieved PRN 2mg haloperidol oral solution which was administered at 0245 with this nurse with bites of chocolate pudding. Following administration, pt continued to be restless and expressed desire to ambulate. After applying gait belt and providing pt with walker, this RN and CC ambulated pt safely to recliner. Pt's verbalization was rambling and suggested that pt believed himself to be working on a vehicle or with machinery and, when unsuccessful, ambulate pt to recliner then back to bed. Pt agitated and not redirectable. This nurse, with several members of the staff including CC and CONDENSER OPERATOR, attempted to support pt's safe return to the bed with walker and gait belt. Pt became increasingly agitated, raising his voice and making threatening gestures as if to slap at staff. Due to increased agitation, CC retrieved and administered PRN 10mg Zyprexa, administered IM to R vastus lateralus at 0315. This nurse, with a second floor RN and CC, then successfully ambulated pt to bed. Agitation steadily decreased over the next 30-45 minutes whereupon pt appeared to be resting comfortably.
[2023-12-20 07:22] VITALS: BP 102/68; PULSE 96; RESP 16; TEMP 36.6; O2SAT 94
[2023-12-20] MEDS: Finasteride 5 MG TAB PO (07:28)
[2023-12-20] MEDS: risperiDONE 0.5 MG TAB PO ×2 (07:28→17:08)
--- NOTE | 2023-12-20 09:00 | CMPROGNOTE_ITS ---
Date of service: 12/20/23 Care Management Progress Note Progress Note Text Progress Note Text: S/O: Roger was sitting up in a chair with Elvira sitting next to him when CM discussed [facility] not have any beds, there is no appropriate bed available at [facility], [facility] and [facility] do not have male beds,however, in [facility] has a dementia unit with a potential bed offer. CM met with Elvira again in the afternoon and hospice coordinator Yun Flor via phone, per request CM operations assistant sent referrals to [facility] and [facility]. CM continues to follow. A: Roger is a 78 year old male admitted to [facility] for Hospice respite 12/18/23. P: Roger will remain at [facility] for Hospice respite, for up to 5 days. CM and rail maintenance worker will work together to support Roger and his family. CM will send referrals to SNF for placement, private pay for care home care on hospice. If he does nt have placement by the end of his 5 day respite, he will be d/c'd home with family. CM will continue to follow. SDOH(Care Management) Screening Will the Patient Participate in the Screening?: Unable to obtain
--- NOTE | 2023-12-20 09:00 | PDOC.CMPRO ---
Date of service: 12/20/23 Care Management Progress Note Progress Note Text Progress Note Text: S/O: Roger was sitting up in a chair with Elvira sitting next to him when CM discussed [facility] does not have any beds, there is no appropriate bed available at [facility], [facility] and [facility] do not have male beds,however, in [facility] has a dementia unit with a potential bed offer. CM met with Elvira again in the afternoon and painting worker Yun Flor via phone, per request CM training program assistant sent referrals to [facility] and [facility]. CM continues to follow. A: Roger is a 78 year old male admitted to [facility] for Hospice respite 12/18/23. P: Roger will remain at [facility] for Hospice respite, for up to 5 days. CM and coffee plantation worker will work together to support Roger and his family. CM will send referrals to SNF for placement, private pay for senior care care on hospice. If he does nt have placement by the end of his 5 day respite, he will be d/c'd home with family. CM will continue to follow. SDOH(Care Management) Screening Will the Patient Participate in the Screening?: Unable to obtain
--- NOTE | 2023-12-20 11:08 | PHA.REVIEW2 ---
Pharmacy Admission Review Admission Clinical Review Admission Pharmacy Review: Lives in assisted living facility (Acute) Requires daily assistance for activities of daily living (ADL) and comfort needs (Acute) Unsteady gait (Acute) Hospice care (Acute) Contusion of face (Acute) Unintentional weight loss (Acute) Deficit in activities of daily living (ADL) (Acute) Unable to self-administer medication (Acute) Mixed Alzheimer's and vascular dementia (Acute) DNI (do not intubate) (Acute) DNR (do not resuscitate) (Acute) Resuscitation Status DNR/DNI Height 5 ft 7 in Weight 78.018 kg Comments Comments/Follow Ups: Hospice Respite - discharge on , 12/23/23 Pharmacy Admission Review Renal Dosing Medications needing adjustments: Reviewed (CrCl 66.1 mL/min) Anticoagulation DVT Prophylaxis: Reviewed (None at this time - hospice patient) Opiate Usage Evaluate Pain Scale/Pains Meds: Reviewed (PRN morphine concentrate) Scheduled Bowel Reg ordered if on Opiates?: No (PRN Miralax/Bisacodyl) Relevant Labs Electrolytes, C-Reactive P, ESR: Reviewed DM Control DM Control: Reviewed Cardiac Review BP, HR, EF%: Reviewed (HR 96) QTc Review QTc: Reviewed (Last EKG was 12/08/21 with QTc of 418) IV to PO Switch IV Medications: Reviewed Home Meds Home Med List reviewed: Reviewed Current Meds Current Medication Order Review: Reviewed Comments Comments/Follow Ups: Hospice Respite - discharge on , 12/23/23
[2023-12-20] MEDS: Water,Injection,Sterile 10 ML VIAL (17:58)
--- NOTE | 2023-12-20 18:14 | PGE_ITS ---
Date of Service Date of service: 12/20/23 Time of Service: 15:00 Assessment and Plan Assessment and plan (1) Requires daily assistance for activities of daily living (ADL) and comfort needs: Status: Acute Assessment and plan: CI agrees to take him back if behaviors are calmed; Elvira aware that CI is not the correction solution and they should continue pursuing LT placement at [place] level care; this could be a short term solution pending bed availability - referrals pending and sent to [facility] and [place]; denied others, see HPI; CM and hospice [employer]INTER [employer] working on placement referrals - Roger will not return home, even w/caregiver support (2) Hospice care: Status: Acute Assessment and plan: Remains on Respite Hospice Admission. Needs to be discharged on December 22. Dr. Hernandez will be the provider to discharge him. Family aware he will need to remain in [place] level care through [facility]; CI willing to try again, short term solution He doesn't qualify for inpatient level of care in the hospital. (3) Unsteady gait: Status: Acute Assessment and plan: At risk for falling. Can see if [facility] PT thinks he is safe to use a walker. Was using cane upon admission to [facility]. Not sure if he is cognitively able to use walker. (4) Mixed Alzheimer's and vascular dementia: Status: Acute Assessment and plan: Advanced. May also have a component of FTD. His brother Francois of similar dementia, and he had FTD in addition to AD and vascular, per family. He at the [facility]. behaviors improved w/risperidone 0.5mg BID, change made yesterday continue Haldol and Zyprexa PRN (5) Incontinence of urine: Status: Chronic Assessment and plan: Chronic. Not new. Unaware when he is soiled. (6) DNI (do not intubate): Status: Acute (7) DNR (do not resuscitate): Status: Acute Assessment and plan: Has COLST form done several years ago indicating his desires for DNR/DNI status. Subjective Subjective Interval history since last seen: Roger remains at [facility] on Hospice for RESPITE care - plans for discharge on ; visit today d/t request of family Roger is having a better day today, no behavior or agitation concerns. yesterday he did have increased agitation, Medication changes yesterday (risperidone 0.5mg BID), w/good effect (was previously 0.25mg TID). Haldol continues to work well for acute need, Zyprexa overnight d/t restlessness w/good effect. 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 Elvira will plan on staying away tomorrow to have a full 24 hour period w/no family to more appropriately assess behavior patterns. referrals to [facility] show potential acceptance, sent referrals to [facility] and [facility]; declined at [facility], [place], [facility] Exam Narrative Exam Narrative: Roger was in his recliner. Made appropriate eye contact and engaged in conversation He was swearing hospital clothing. He was pleasant but confused. The left upper side of his face w/bruising Respirations even and unlabored, speaks full sentences w/no SOB, no audible wheeze or cough Neck was without JVD or LAD. Neuro Oriented only to self. Some answers are on target, most are not. Does not have capacity. Psych was calm, cooperative skin other than previous facial laceration, no bruising or abrasions noted Objective Last Vital Signs Temp 97.9 F 12/20/23 07:22 Pulse 96 H 12/20/23 07:22 Resp 16 12/20/23 07:22 BP 102/68 12/20/23 07:22 Pulse Ox 94 12/20/23 07:22 Time Spent with Patient Time Spent with Patient: 25-34 minutes Time was spent: preparing to see the patient(eg.review tests), obtaining and/or reviewing separately otained hiistory, referring, communicating with other health occasional caregiver, counseling the patient and care coordination
[2023-12-20 20:20] VITALS: PULSE 104; RESP 20
[2023-12-20] MEDS: LORazepam 2 MG/1 ML Oral Concentrate 1 MG PO (20:23)
[2023-12-21 01:57] VITALS: TEMP 36.6
[2023-12-21] MEDS: LORazepam 2 MG/1 ML Oral Concentrate 1 MG PO (01:57)
[2023-12-21 09:25] VITALS: BP 107/71; PULSE 96; RESP 20; TEMP 36.9; O2SAT 91
[2023-12-21] MEDS: Finasteride 5 MG TAB PO (09:36)
[2023-12-21] MEDS: risperiDONE 0.5 MG TAB PO (09:36)
--- NOTE | 2023-12-21 12:20 | PGE_ITS ---
Date of Service Date of service: 12/21/23 Time of Service: 12:00 Assessment and Plan Assessment and plan (1) Requires daily assistance for activities of daily living (ADL) and comfort needs: Status: Acute Assessment and plan: His care needs will be better met in a SNF rather than Level 3 assisted living. Alternatively, he may benefit from a community mcfp, if provider is trained in dementia care. He has had 2 major transitions in one week---from home to Assisted Living, and then from Assisted Living to inpatient care at the hospital for his hospice respite. Transitions are hard on people with dementia; he is not at his best this week but I suspect he will be able to settle in at his final destination. He is generally a social and genial fellow. (2) Unsteady gait: Status: Acute Assessment and plan: He fell a few days before he moved into Assisted Living (this is what prompted the move, I believe). His face is healing well. No sutures in place. He is still unsteady and needs at least one stand-by person when walking. (3) Hospice care: Status: Acute Assessment and plan: Continue hospice respite stay. We have been seeing him daily and adjusting his medications daily, but the hospice outside event sales specialist who would guide providers re: respite vs symptom management is not available. May need to review respite vs. symptom management status in future. I erred on cautious side. (4) Mixed Alzheimer's and vascular dementia: Status: Acute Assessment and plan: End-stage. He struggles to communicate his needs. He gets scared and then gets agitated. Once he is accustomed to a steady place where he can settle in with trained personnel, I think he will adjust. (5) Incontinence of urine: Status: Chronic Assessment and plan: Due to his dementia. (6) Facial laceration: Status: Acute Assessment and plan: From his fall. Healing well. (7) Unintentional weight loss: Status: Acute Assessment and plan: Family guesses he has lost about 30 lbs over the last 3-6 months. Subjective Subjective Patient reports: no new complaints, feels better and bowel movement Interval history since last seen: Roger is a 78 yo man with advanced mixed dementia of Alzheimer's and vascular types on hospice for same. He also has unintentional weight loss on his problem list. I am seeing him today for a hospice respite visit at [facility]. He had moved from his home to [facility] assisted living one week ago today. Last week, he struggled to adjust to CI and became more agitated during the week, though he did have a majority of time when he was cooperative and pleasant. He appears to be suffering from sundowning especially, with the hours of 6:00 pm to 8:00 pm being most challenging. On Sunday 12/17, after his son had visited and helped put him to bed for what they they thought was the night, Roger suddenly became quite agitated, and [facility] staff was unable to give him his oral haldol to help calm him. I was called by the hospice nurse who reported that CI staff needed to have him admitted to [facility] as they only had one person on for the evening and they could not do one-on-one, understandably. I admitted him to [facility] on Wednesday night 12/18/23. He is due to be discharged on 12/23/23, as he will have completed his 5 night respite stay. He is eating about 25% of his meals. He did have a bowel movement yesterday. He is doing well with the hospital LNAs. He has a good relationship with his primary nurse. I watched him interact with them and he was cooperative and pleasant. He does not do well with corrective statements or if challenged, as is common wi th people with dementia. 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 He likes to fix things. He does well when handed tangled plastic hospital lines, or other such objects. He likes to help fix things for other people. His daughter, Elvira, was present for most of my visit. We discussed referrals to various SNFs that have been made on Roger's behalf. I called a few of the admissions numbers and gave them my personal cell phone to contact. Exam Narrative Exam Narrative: Roger was in his recliner. Made appropriate eye contact and engaged in conversation He was swearing hospital clothing. He was pleasant but confused. The left upper side of his face w/bruising Respirations even and unlabored, speaks full sentences w/no SOB, no audible wheeze or cough Neck was without JVD or LAD. Neuro Oriented only to self. Some answers are on target, most are not. Does not have capacity. Psych was calm, cooperative skin other than previous facial laceration, no bruising or abrasions noted At the end of my exam, soon after his daughter arrived, the LNAs took him for a walk in a WC around the [facility] floor. He is not currently using his cane or walker. Neuro General: patient confused and unable to assess gait Cognition: abnormal cognition Speech: abnormal speech Psych Appearance: grossly normal Insight: poor Judgment: poor Objective Last Vital Signs Temp 98.5 F 12/21/23 09:25 Pulse 96 H 12/21/23 09:25 Resp 20 12/21/23 09:25 BP 107/71 12/21/23 09:25 Pulse Ox 91 L 12/21/23 09:25 Time Spent with Patient Time Spent with Patient: 25-34 minutes Time was spent: ordering medications,tests, procedures (changing medications), referring, communicating with other health livestock caretaker, counseling the patient and care coordination
--- NOTE | 2023-12-21 16:40 | CHAPLAIN ---
Roger was in bed, restless, trying to get out of bed at times, but not really able to do that. He has dementia. His daughter was with him. She said yesterday was a good day and he interacted with her. Today has been more stressful for them. Roger is a hospice patient who moved from home to the [facility], and was admitted here for respite four days later. Care Management is working with social workers from hospice to get Roger admitted to a nursing home care facility. Roger's daughter said her brother was arriving later today to spend time with Roger. I explained my role and offered support. Roger's daughter said that everyone caring for Roger has been very kind.
[2023-12-21 19:05] VITALS: PULSE 100; RESP 20
[2023-12-22] MEDS: Finasteride 5 MG TAB PO (08:57)
[2023-12-22] MEDS: risperiDONE 0.5 MG TAB PO ×2 (08:57→21:26)
[2023-12-22 09:03] VITALS: BP 147/103; PULSE 100; RESP 20; TEMP 36.3; O2SAT 94
[2023-12-22] MEDS: Bisacodyl 10 MG SUPP PR (13:30)
[2023-12-22] MEDS: Acetaminophen 325 MG TAB 650 MG PO (13:30)
--- NOTE | 2023-12-22 14:27 | PDOC.CMPRO ---
Date of service: 12/22/23 Care Management Progress Note Progress Note Text Progress Note Text: S/O: Roger was sitting up in a chair visiting with family. CM met with daughter Elvira in the hallway who reported Roger will transition to an AFC home with Sarai Walker. Elvira shared she would like her dad to be on the wait list at a few facilities, particularly the ones [facility]. Elvira said she has had a great experience with the nursing staff while at [facility] and was impressed with their service. CM reviewed call back program and recognitions. CM continues to follow. A: Roger is a 78 year old male admitted to [facility] for Hospice respite 12/18/23. P: Roger will discharge to an AFC home. He will likely transport via EMS coordinated by the nursing machine setter supervisor. SDOH(Care Management) Screening Will the Patient Participate in the Screening?: Unable to obtain
[2023-12-22] MEDS: Haloperidol 5 MG/ML VIAL 2 MG IM (15:11)
[2023-12-22] MEDS: MORPHine Oral Concentrate 20 MG/ML PO ×2 (16:20→18:28)
[2023-12-22] MEDS: Mirtazapine 15 MG TAB 7.5 MG PO (21:25)
[2023-12-22] MEDS: Haloperidol 5 MG/ML VIAL IM (21:28)
[2023-12-23] MEDS: Acetaminophen 325 MG TAB 650 MG PO ×2 (03:15→12:41)
[2023-12-23] MEDS: MORPHine Oral Concentrate 20 MG/ML PO (03:16)
[2023-12-23 07:55] VITALS: BP 128/81; PULSE 101; RESP 20; TEMP 36.2; O2SAT 89
--- NOTE | 2023-12-23 09:28 | CMDISCH_ITS ---
Date of service: 12/23/23 LACE Index Scoring Tool Questions: Length of Stay (in days): 4 - 6 Was the patient admitted via the E.D.?: No Comorbidities: Dementia E.D. Visits: 0 Answers: Total Score: 7 Risk of Readmission: Low Risk Care Management Discharge Plan Reason for Hospitalization: Symptom management to respite Discharge Plan: Roger will discharge to an AF home in [place], [place] with caregiver Sarai Walker. He will transport via EMS coordinated by Hospice . Per request, provided [facility], [facility], and [facility] phone numbers to [facility] where referrals are pending. Hospice MD and PLAN CHECKER following. Patient/Family Education Needs: Review discharge instructions and plan of care as prescribed. Discussion of Ask Me Three SDOH Health Related Social Needs: No Data to Display
[2023-12-23] MEDS: risperiDONE 0.5 MG TAB PO ×2 (09:29→13:56)
[2023-12-23] MEDS: Finasteride 5 MG TAB PO (09:29)
[2023-12-23] MEDS: fentaNYL 12 MCG PATCH TD (14:04)
--- NOTE | 2023-12-23 19:47 | W.PM.DS.N ---
Date of service: 12/23/23 Time of Service: 13:00 DS: Diagnosis Discharge Diagnosis (1) Requires daily assistance for activities of daily living (ADL) and comfort needs: Status: Acute Asessment and Plan: Moving to community correction with Sarai Walker who will assist Roger with all ADLs. (2) Unsteady gait: Status: Acute Asessment and Plan: At risk for falling. Has chronic left hip and thigh pain. Starting fentanyl patch at 12 mcg at time of discharge. May help with unsteady gait. Unable to use a walker due to his advanced dementia. (3) Hospice care: Status: Acute Asessment and Plan: Will continue hospice care. Has advanced AD and vascular dementia, perhaps with a component of FTD given his personality changes. Hard to say. He will be seen daily over the next 72 hrs. I will see him at his new placement on Wednesday, 12/27. (4) Mixed Alzheimer's and vascular dementia: Status: Acute Asessment and Plan: Advanced. Unable to communicate with words. Has episodes of agitation. Titrating up his risperidone. Does not respond well to lorazepam--oversedates. (5) Incontinence of urine: Status: Chronic Asessment and Plan: Unable to be cued to use urinal. Is able to make it to the commode/toilet for defecation with help and cueing. Needs help with mechanics of toileting. (6) Unintentional weight loss: Status: Acute Asessment and Plan: Roger has lost about 30 lbs in less than six months. Not eating much. Used to be diabetic. Not on diabetic diet now to encourage po intake. (7) DNI (do not intubate): Status: Acute (8) DNR (do not resuscitate): Status: Acute Discharge Plan Disposition Patient Disposition: Home W/Hospice Services Condition: Poor Discharge Details Reason For Visit: Symptom Management to Respite Admit Date/Time: 12/18/23 21:07 Admit Provider: Raquel Hernandez Attending Provider: Raquel Hernandez Primary Care Provider: Deejay Spain Home Meds and New Rx's Prescriptions: New risperidone 0.5 mg Tablet 0.5 mg PO TID Qty: 45 0RF fentanyl 12 mcg/hr Patch 72 Hour 12 mcg transdermal Q72H Qty: 5 0RF Continued finasteride 5 mg tablet 5 mg PO DAILY Qty: 90 3RF morphine concentrate 100 mg/5 mL (20 mg/mL) solution See Rx Instructions PO Q1H PRN MDD 120 mg Qty: 30 0RF Rx Instructions: hospice acetaminophen 650 mg suppository 650 mg NV Q6H PRN (Reason: fever or pain) Patient Comments: INSERT ONE SUPPOSITORY RECTALLY EVERY 6 HOURS NEEDED FOR FEVER, MILD PAIN prochlorperazine maleate 10 mg tablet 10 mg PO Q6H PRN (Reason: nausea and vomiting) bisacodyl 10 mg suppository 10 mg NV DAILY PRN (Reason: constipation) Patient Comments: INSERT ONE SUPPOSITORY RECTALLY EVERY DAY NEEDED FOR CONSTIPATION (NO BM IN 3 DAYS) hyoscyamine sulfate 0.125 mg tablet, sublingual 0.125 mg PO Q4H PRN (Reason: secretions) Patient Comments: TAKE ONE TO TWO TABLETS BY MOUTH OR UNDER TONGUE EVERY 4 HOURS NEEDED FOR SECRETIONS haloperidol lactate 2 mg/mL concentrate 1 mg PO Q6H PRN (Reason: agitation) Patient Comments: 0.5mL (1mg) PO/SL q6 as needed for agitation. Last taken 12/18/23 per Tamica Saenz mirtazapine 7.5 mg tablet 7.5 mg PO QHS Qty: 30 3RF lorazepam 1 mg tablet 1 mg PO Q4H PRN (Reason: anxiety) Qty: 10 5RF Rx Instructions: hospice risperidone 0.25 mg tablet 0.25 mg PO TID Qty: 21 3RF Rx Instructions: may increase to 2 tabs (0.5 mg) tid if one tab ineffective ibuprofen [IBU-200] 200 mg tablet 600 mg PO DAILY PRN (Reason: pain) Discharge Instructions Activity:: Activity as Tolerated Equipment/Supplies:: No Equipment Needed Diet:: As Tolerated Discharge Data Discharge Date/Time-TO BE ENTERED AT DEPARTURE: 12/23/23 15:05 DS: Summary Time Spent with Patient providing and/or coordinating discharge services: Greater than 30 minutes Status at Discharge Functional status at discharge: uses cane/walker (if possible; does best if person walks with him, gets confused by walker and cane) Overall status at discharge: patient is progressing back to baseline Mental Status: other (has advanced dementia) Speech and Movement: No speech clear, restless and slowed movement Mood: other (has advanced dementia) Affect: labile affect Quality:SDOH Health Related Social Needs: No Data to Display Exam Neuro General: patient confused and unable to assess gait Cognition: abnormal cognition Speech: abnormal speech Psych Appearance: grossly normal Mental Status: other (has advanced dementia) Speech and Movement: speech not clear, restless and slowed movement Mood: other (has advanced dementia) Affect: labile affect Insight: poor Judgment: poor DS: Data Vitals/I&O Vitals and I&O: Vital Signs Temperature 97.2 F L 12/23/23 07:55 Temperature Source Tympanic 12/23/23 07:55 Pulse 101 H 12/23/23 07:55 Pulse Rhythm Regular 12/23/23 12:45 Respiratory Rate 20 12/23/23 07:55 Respiratory Effort Normal, Non-Labored 12/23/23 12:45 Respiratory Depth Normal 12/23/23 12:45 Respiratory Pattern Normal 12/23/23 12:45 Blood Pressure 128/81 12/23/23 07:55 Pulse Oximetry 89 L 12/23/23 07:55 Oxygen Delivery Method Room Air 12/23/23 07:55 Oxygen Flow Rate 0 12/23/23 07:55 Pain Level 2 12/23/23 14:33 Intake & Output 12/22/23 12/23/23 12/23/23 23:59 11:59 23:59 Intake Total 100 / 300 Output Total 200 / 200 Balance -100 / 100 Intake: Oral 100 / 300 Output: Urine 200 / 200 Other: Urine Color Yellow Yellow Urine Appearance Clear Clear Clear Urine Odor Normal Comment moderate amount of urine in diaper. Stool Size Large Stool Characteristics Hard Voiding Methods Bedside Commode Diaper Incontinent [facility] All Active Problems Requires daily assistance for activities of daily living (ADL) and comfort needs (Acute) Unsteady gait (Acute) Hospice care (Acute) Contusion of face (Acute) Facial laceration (Acute) from fall at home Unintentional weight loss (Acute) Encounter for hospice care discussion (Acute) Sciatica of left side (Acute) Advanced care planning/counseling discussion (Acute) Deficit in activities of daily living (ADL) (Acute) Unable to self-administer medication (Acute) Driving safety issue (Acute) Mixed Alzheimer's and vascular dementia (Acute) Incontinence of urine (Chronic) multifactorial DNI (do not intubate) (Acute) DNR (do not resuscitate) (Acute) POLST (Physician Orders for Life-Sustaining Treatment) (Acute) Urgency incontinence (Chronic 03/09/17) Tubular adenoma of colon (Chronic) colono.2012: normal Sleep apnea (Chronic) intolerant of CPAP contributing to cognitive impairment Iron deficiency anemia (Chronic 04/10/16) resolved 2018 advised trial off supplement 2019 GERD (gastroesophageal reflux disease) (Chronic) Fatty liver (Chronic) Essential tremor (Chronic 02/01/18) ED (erectile dysfunction) (Chronic) Diabetes (Chronic) no nephropathy Chronic back pain (Chronic) 1- [facility]: 07-20-2011: L2-S1 decompression with unilateral fusion Left L5-S1 Dr.James Pacheco / followed by #epidural/nerve root injections 2- [facility]: pain clinic/ #injections 3-[facility] : ; medical tx recommended 4- : requested dx selective root block L3-L4 for poss.future selective foraminectomy 5- 2016: inj. not done: pt asymptomatic BPH (benign prostatic hyperplasia) (Chronic) 2016/ 2013; triple rx Hyperlipidemia (Chronic) Medical History Smoker 1/2-1 ppd restarted after 's 2015 quit 11/27 Sepsis Viral encephalitis Mild cognitive impairment has advanced to dementia Osteoarthritis Hyperlipidemia Diabetes mellitus Benign prostatic hyperplasia Surgical History back surgery Lumbar spine 07/2012;[facility] Colonoscopy - MAC (04/08/18) Colonoscopy - IV Sedation Family History Mother , in her early 60s Personal history of malignant neoplasm Father , about age 80 in hospital after brief illness Acute medical illness Brother Heart disease Stroke Grandfather Heart disease Grandfather Diabetes Grandmother Heart disease Brother Personal history of malignant neoplasm Brother , KIDNEY FAILURE at age 71. Diabetes Heart disease Stroke Daughter No problems noted. Son No problems noted. Son No problems noted. 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 Pets and animals: No (his dog in 2018; son's dogs in 2019 and 2020; Roger misses them) What is your relationship status?: How often do you talk on the phone with friends or family?: never How often do you get together with friends or relatives?: three or more times per week Do you belong to any clubs or organized social groups?: no Panel score (0-1 are the most socially isolated patients): 1 What type of physical activity do you participate in: none Special micheal needs: No Agree to transfusion: No Seatbelt use: sometimes Working smoke detector in home: Yes Fire extinguisher in home: Yes Firearms in home: No Do you feel safe at home: Yes Do you feel safe in your relationship?: Yes Additional Social history: Keshias dementia has been progressing rapidly since 2022. Unsafe to live at home alone. Proved that he needs more help than a level 3 can provide. Will need SNF placement JOVANY. Time Spent with Patient Time Spent with Patient: <45 minutes Time was spent: ordering medications,tests, procedures, referring, communicating with other health rn care transition, counseling the patient and care coordination
== END 2023-12-23 15:05 | disposition hospice, home (50) | DRG 57 ==
PROVIDERS: Admitting Provider Family Medicine; PCP Nurse Practitioner Family; Visit Provider Family Medicine
DX: G30.9 Alzheimer's disease, unspecified (principal); F01.C11 Vascular dementia, severe, with agitation; F02.C11 Dementia in other diseases classified elsewhere, severe, with agitation; F01.C18 Vascular dementia, severe, with other behavioral disturbance; Z51.5 Encounter for palliative care; R63.4 Abnormal weight loss; R26.81 Unsteadiness on feet; Z66 Do not resuscitate; E11.9 Type 2 diabetes mellitus without complications; Z74.1 Need for assistance with personal care; W19.XXXD Unspecified fall, subsequent encounter; S00.83XD Contusion of other part of head, subsequent encounter; Z91.83 Wandering in diseases classified elsewhere; M54.32 Sciatica, left side; N39.41 Urge incontinence; G47.30 Sleep apnea, unspecified; D50.9 Iron deficiency anemia, unspecified; K76.0 Fatty (change of) liver, not elsewhere classified; K21.9 Gastro-esophageal reflux disease without esophagitis; G25.0 Essential tremor; G89.29 Other chronic pain; Z98.1 Arthrodesis status; E78.5 Hyperlipidemia, unspecified; Z87.891 Personal history of nicotine dependence; N40.0 Benign prostatic hyperplasia without lower urinary tract symptoms
CPT/HCPCS: 00123; J1630; J2359; J3490